=== PATIENT | female | born 1960 | race Caucasian/White ===

== ENCOUNTER 2018-05-09 22:50 | Emergency (ER) | payer SELFPAY ==
[~2018-05-09] VITALS: Ht 152.4 cm; Wt 104.3 kg
[~2018-05-09 22:50] MED LIST: Z ZESTRIL
== END 2018-05-09 23:50 | disposition home or self-care (01) ==
LOC: ER 22:50
DX: I10 Essential (primary) hypertension (principal); R51 Headache
CPT/HCPCS: 99282

== ENCOUNTER 2018-11-25 20:19 | Emergency (ER) | payer SELFPAY ==
[~2018-11-25] VITALS: Ht 152.4 cm; Wt 104.3 kg
== END 2018-11-25 21:35 | disposition left against medical advice (07) ==
LOC: ER 20:19
DX: Z76.0 Encounter for issue of repeat prescription (principal)

== ENCOUNTER 2019-04-09 12:16 | Emergency (ER) | payer SELFPAY ==
[~2019-04-09] VITALS: Ht 152.4 cm; Wt 104.3 kg
[2019-04-09] MEDS ORDERED: LISINOPRIL 20 MG TAB ONE (13:11)
[2019-04-09] MEDS ORDERED: HYDROCHLOROTHIAZIDE 25 MG TAB ONE (13:11)
== END 2019-04-09 13:12 | disposition home or self-care (01) ==
LOC: ER 12:16
DX: I10 Essential (primary) hypertension (principal)
CPT/HCPCS: 99281